=== PATIENT | male | born 2000 | race Two or more races ===

== ENCOUNTER 2020-06-01 20:00 | Emergency (ER) | payer BC ==
[2020-06-01 20:08] VITALS: BMI 21.7
[2020-06-01] MEDS ORDERED: ACETAMINOPHEN 500 MG TABLET (FP) PO ONE (21:34)
[2020-06-01] MEDS ORDERED: ACETAMINOPHEN 325 MG TABLET (FP) ONE (22:05)
[2020-06-01 22:54] VITALS: BP 117/56; PULSE 78; TEMP 98
== END 2020-06-01 22:57 | disposition home or self-care (01) ==
LOC: JER 20:00
DX: R07.9 Chest pain, unspecified (principal)
CPT/HCPCS: 71046-TC-FY; 93005; 93010; 99284-25